=== PATIENT | male | born 1940 | race Caucasian/White ===

== ENCOUNTER → 2017-06-04 | Outpatient (CLI) | payer BC, OTHER | LOC: M.RAD 11:39 | DX: Z00.00 Encounter for general adult medical examination without abnormal findings (principal); K44.9 Diaphragmatic hernia without obstruction or gangrene; R91.1 Solitary pulmonary nodule ==

== ENCOUNTER → 2017-06-22 | Outpatient (CLI) | payer BC, OTHER ==
--- NOTE | 2017-06-27 22:41 | ONC ---
[place] [address] RADIATION ONCOLOGY NOTE Name: ERMIASFUAD Yenifer Room: [facility]#: [id number] Admission: 06/22/17 Attend Phys: Juan Olivares MD Discharge: Date of : 36 Report #: [id number] THIS REPORT FOR: //name// CC: Anson Melton MD DATE OF SERVICE: 06/22/2017 RADIATION ONCOLOGY FOLLOWUP NOTE REFERRING PHYSICIANS: Anson Dixon DO and Abhinav Melton MD [facility] phone is [phone]. 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 The radiation treatments were completed on 11/17/2013. INTERVAL NOTE: The patient indicated that he received chemotherapy years ago and that he has had neuropathy in his lower extremities since that time. He has good range of motion in his lower extremities. He has a good appetite. MEDICATIONS: Include Zegerid, aspirin, Lipitor, and vitamin supplements. SOCIAL HISTORY: The patient is retired. He worked for [employer]. He is . Cigarettes: he smoked about 1 pack per day for about 12 years. He quit smoking in 1969. REVIEW OF SYSTEMS: NEUROLOGIC: The patient's gait is intact. The patient ambulates without assistance. GASTROINTESTINAL: He has a good appetite. PHYSICAL EXAMINATION: VITAL SIGNS: The patient weighed 162 pounds on 06/22/2017, 160.8 pounds on 12/08/2016, On 06/22/2017, blood pressure was 127/85, pulse 92, respirations 20, oxygen saturation was 95%. LYMPH NODES: He had no palpable cervical, supraclavicular or inguinal lymphadenopathy. HEART: Had a regular rate and rhythm without murmur. LUNGS: were clear to auscultation. ABDOMEN: Not tender. Spleen was not palpable. Liver was at the costal margin. EXTREMITIES: The patient had a well-healed graft site in the left thigh area, which is soft and stable. That has been stable and measured about 10.6 cm x 7 cm. RADIOLOGIC DATA: The patient had a chest CT scan on 04/07/2017 [place] [address] RADIATION ONCOLOGY NOTE Name: FUAD MONSON Room: [facility]#: [id number] Admission: 06/22/17 Attend Phys: Juan Olivares MD Discharge: Date of : 36 Report #: [id number] revealed a stable nodule in the upper lobe of the right lung that has been stable since 2012 and consistent with a granuloma. There were no suspicious pulmonary nodules and there were mild coronary artery calcifications. The patient had a chest x-ray on 06/04/2017 which had a stable chest x-ray appearance. ASSESSMENT AND PLAN: 1. History of sarcoma- There is no evidence of sarcoma at this time. The patient is scheduled for a CT scan of the chest as well as an appointment with his surgeon, Dr. Abhinav Melton, on 10/06/2017. The patient was given a requisition for a chest x-ray in December 2017 and he was asked to schedule a follow up appointment with me afterwards. 2. Lower extremity neuropathy - the patient was referred to the oncology rehabilitation physician, Dr. Lozano to assess and manage this issue. 3. Calcified coronary artery disease- The patient was referred to his primary care physician, Dr. Dixon, to manage this issue. 4. Hyperlipidemia- The patient takes Lipitor and that is managed by his referring physicians. 5. Reflux- The patient takes Zegerid for reflux and that is managed by his referring physicians. Thank you for allowing me to participate in the care of this patient. <ELECTRONICALLY SIGNED> By: Juan Oliavres MD 06/27/17 2241 1700 1949Juan Olivares MD /nt
== END ==
LOC: M.RTH 06-08 15:00
DX: I25.10 Atherosclerotic heart disease of native coronary artery without angina pectoris (principal); E78.5 Hyperlipidemia, unspecified; G57.90 Unspecified mononeuropathy of unspecified lower limb; K21.9 Gastro-esophageal reflux disease without esophagitis; Z85.831 Personal history of malignant neoplasm of soft tissue

== ENCOUNTER → 2017-12-23 | Outpatient (CLI) | payer BC | LOC: M.RAD 14:21 | DX: J84.10 Pulmonary fibrosis, unspecified (principal); K44.9 Diaphragmatic hernia without obstruction or gangrene; Z85.831 Personal history of malignant neoplasm of soft tissue ==

== ENCOUNTER → 2017-12-25 | Outpatient (CLI) | payer BC ==
--- NOTE | 2018-01-02 17:56 | ONC ---
[address] [address] RADIATION ONCOLOGY NOTE Name: ERMIASFUAD Street Room: [facility]#: [id number] Admission: 12/25/17 Attend Phys: Juan Olivares MD Discharge: Date of : 36 Report #: [id number] THIS REPORT FOR: //name// CC: Anson Melton MD DATE OF SERVICE: 12/25/2017 Radiation Oncology Followup Note REFERRING PHYSICIANS: Include Abhinav Melton MD and Anson Dixon DO; Dr. Lozano. [facility] phone is [phone]. 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 Radiation treatments were completed on 11/17/2013. INTERVAL NOTE: The patient said that he saw the oncology rehabilitation physician, Dr. Lozano, for his neuropathy and that Dr. Lozano prescribed gabapentin for him and that his neuropathy pain has improved. He continues to follow up with his surgeon, Dr. Melton. He feels like he ambulates well. He has a good appetite. He is able to ambulate unassisted. MEDICATIONS: Include zinc supplement, Zegerid, multivitamin, aspirin, Lipitor, and gabapentin. SOCIAL HISTORY: The patient is retired. He worked for [employer]. He is . Cigarettes: He smoked about 1 pack per day for about 12 years. He quit smoking in 1969. REVIEW OF SYSTEMS: NEUROLOGIC: The patient's gait is intact. The patient ambulates without assistance. GASTROINTESTINAL: He has a good appetite. PHYSICAL EXAMINATION: VITAL SIGNS: The patient weighed 159 pounds on 12/25/2017. The patient was 162 pounds on 06/22/2017. On 12/25/2017, blood pressure was 137/79, pulse 80, respirations 18, oxygen saturation was 98% on room air. LYMPH NODES: He had no palpable cervical, supraclavicular or inguinal lymphadenopathy. HEART: Had a regular rate and rhythm without murmur. LUNGS: [place] [address] RADIATION ONCOLOGY NOTE Name: FUAD MONSON Room: [facility]#: [id number] Admission: 12/25/17 Attend Phys: Juan Olivares MD Discharge: Date of : 36 Report #: [id number] ABDOMEN: Not tender, spleen was not palpable. Liver was at the costal margin. EXTREMITIES: The patient has a well-healed graft site in the left thigh area, which was soft and stable. RADIOLOGIC DATA: The patient had a chest x-ray on 12/23/2017 at [facility], which revealed a small stable calcified granuloma in the mid right lung. Otherwise, the chest x-ray revealed no acute abnormalities. The patient had a chest CT on 10/06/2017 and that revealed a 0.7 cm right upper lobe nodule that remained unchanged since 2012. The patient has a hiatal hernia. There was no evidence of thoracic metastatic disease. ASSESSMENT AND PLAN: 1. History of sarcoma- There is no evidence of sarcoma at this time. The patient has an appointment with Dr. Melton's nurse practitioner on 04/07/2018. He is also scheduled for a chest CT scan at that time. The patient was given a requisition for a chest x-ray in 1 year and the patient was asked to schedule a followup appointment to see me afterwards. 2. Lower extremity neuropathy- The patient is taking gabapentin and that has been managed by his oncology rehabilitation physician, Dr. Lozano. 3. Calcified coronary artery disease- The patient had been previously referred to his primary care physician, Dr. Dixon, to manage this issue. 4. Hyperlipidemia- The patient takes Lipitor and that is managed by his referring physicians. 5. Reflux. The patient takes Zegerid for reflux and that is managed by his referring physicians. Thank you for allowing me to participate in the care of this patient. <ELECTRONICALLY SIGNED> By: Juan Olivares MD 01/02/18 1756 1110 0049Juan Olivares MD /nt
== END ==
LOC: M.RTH 04:52
DX: E78.5 Hyperlipidemia, unspecified (principal); G57.90 Unspecified mononeuropathy of unspecified lower limb; I25.10 Atherosclerotic heart disease of native coronary artery without angina pectoris; K21.9 Gastro-esophageal reflux disease without esophagitis; Z85.831 Personal history of malignant neoplasm of soft tissue

== ENCOUNTER → 2019-01-04 | Outpatient (CLI) | payer BC | LOC: M.RAD 16:20 | DX: J98.11 Atelectasis (principal); J98.4 Other disorders of lung; K44.9 Diaphragmatic hernia without obstruction or gangrene; M41.84 Other forms of scoliosis, thoracic region ==

== ENCOUNTER → 2019-01-07 | Outpatient (CLI) | payer BC ==
--- NOTE | 2019-01-23 17:57 | ONC ---
[address] [address] RADIATION ONCOLOGY NOTE Name: FUAD MONSON Room: [facility]#: [id number] Admission: 01/07/19 Attend Phys: Juan Olivares MD Discharge: Date of : 36 Report #: [id number] THIS REPORT FOR: //name// CC: Dr. Anson Olivares MD DATE OF SERVICE: 01/07/2019 REFERRING PHYSICIANS: Abhinav Melton MD; Anson Dixon DO. [facility] phone is [phone]. 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 The patient received postoperative radiation therapy. Radiation treatments were completed on 11/17/2013. INTERVAL NOTE: The patient felt like he was ambulating well and he had seen the oncology rehabilitation physician, Dr. Lozano and she prescribed gabapentin for neuropathy pain and he felt that was working reasonably well. He did have some new complaints about intermittent hematuria, which he attributed to taking aspirin. He states it appeared to resolve when he was no longer taking aspirin. He has not seen urologist yet about that issue. MEDICATIONS: Include zinc supplement, Zegerid, multivitamin, aspirin, Lipitor, and gabapentin. SOCIAL HISTORY: The patient is retired. He worked for [employer]. He is . Cigarettes: he smoked about 1 pack per day for about 12 years. He quit smoking in 1969. REVIEW OF SYSTEMS: NEUROLOGIC: The patient's gait is intact. The patient ambulates without assistance. GASTROINTESTINAL: He has a good appetite. PHYSICAL EXAMINATION: VITAL SIGNS: The patient weighed 160 pounds on 01/07/2019. He was 159 pounds on 12/25/2017. On 01/07/2019, blood pressure was 131/79, pulse 86, respirations 20, oxygen saturation was 97% on room air. LYMPH NODES: He had no palpable cervical or supraclavicular or inguinal lymphadenopathy. HEART: Had a regular rate and rhythm without murmur. LUNGS: were clear to auscultation. ABDOMEN: Not tender. Spleen [place] [address] RADIATION ONCOLOGY NOTE Name: FUAD MONSON Room: [facility]#: [id number] Admission: 01/07/19 Attend Phys: Juan Olivares MD Discharge: Date of : 36 Report #: [id number] at the costal margin. EXTREMITIES: The patient has a well-healed graft site at the left thigh area and he is ambulating without assistance. RADIOLOGIC DATA: The patient had a chest x-ray on 01/04/2019, which revealed no acute chest process. ASSESSMENT AND PLAN: 1. History of sarcoma- There is no evidence of sarcoma at this time. A chest x-ray was ordered in about 1 year and the patient was asked to schedule a followup appointment to see me afterwards. 2. Intermittent hematuria - the patient was referred to the urologist, Dr. Casey, or his colleagues to manage this issue. 3. Hyperlipidemia- The patient takes Lipitor and that is managed by his referring physicians. 4. Lower extremity neuropathy- The patient takes gabapentin for his neuropathy symptoms. Thank you for allowing me to participate in the care of this patient. <ELECTRONICALLY SIGNED> By: Juan Olivares MD 01/23/19 1757 1417 [id number] Olivares MD /nt
== END ==
LOC: M.RTH 12-29 11:00
DX: Z08 Encounter for follow-up examination after completed treatment for malignant neoplasm (principal); N02.9 Recurrent and persistent hematuria with unspecified morphologic changes; E78.5 Hyperlipidemia, unspecified; G62.9 Polyneuropathy, unspecified; Z85.89 Personal history of malignant neoplasm of other organs and systems; Z92.3 Personal history of irradiation; Z79.899 Other long term (current) drug therapy; Z87.891 Personal history of nicotine dependence

== ENCOUNTER → 2019-12-30 | Outpatient (CLI) | payer BC | LOC: M.RAD 15:51 | PROVIDERS: ATTEND Radiology Radiation Oncology | DX: Z08 Encounter for follow-up examination after completed treatment for malignant neoplasm (principal); K44.9 Diaphragmatic hernia without obstruction or gangrene; Z85.89 Personal history of malignant neoplasm of other organs and systems ==

== ENCOUNTER → 2020-01-06 | Outpatient (CLI) | payer BC ==
--- NOTE | 2020-01-15 23:20 | ONC ---
[address] [address] RADIATION ONCOLOGY NOTE Name: FUAD MONSON Room: [facility].#: [id number] Admission: 01/06/20 Attend Phys: Juan Olivares MD Discharge: Date of : 36 Report #: [id number] THIS REPORT FOR: //name// CC: Dr. Anson Owens DATE OF SERVICE: 01/06/2020 RADIATION ONCOLOGY FOLLOWUP NOTE REFERRING PHYSICIANS: Include Abhinav Melton MD and Carlos Guevara MD and Dr. Owens from Urology. [facility] phone is [phone]. PRIMARY SITE AND HISTOPATHOLOGY: The patient underwent resection of a recurrent low-grade mixed fibrosarcoma that involved the left lower extremity. The patient received postoperative radiation therapy. Radiation treatments were completed on 11/17/2013. INTERVAL NOTE: Since his last followup visit with me last year, he went to see the urologist, Dr. Owens. Dr. Owens diagnosed him with, what sounds like a, superficial bladder cancer. The patient indicated that he underwent a transurethral resection of the bladder tumor and follows up with Dr. Owens about every 6 months for cystoscopy. The patient continues to also follow up with his surgeon, Dr. Melton about once a year. The patient feels like he ambulates well and he also had a cataract repair and he has ectropion of the right lower eyelid and he said he will be seeing an channel opener/plastic surgeon to correct that issue. MEDICATIONS: Include famotidine, Lipitor, aspirin, and then vitamin supplements. SOCIAL HISTORY: The patient is retired. He worked for [employer]. He is . Cigarettes: he smoked about 1 pack per day for about 12 years. He quit smoking in 1969. REVIEW OF SYSTEMS: NEUROLOGIC: The patient's gait is intact. The patient ambulates without assistance. GASTROINTESTINAL: He has a good appetite. PHYSICAL EXAMINATION: [place] [address] RADIATION ONCOLOGY NOTE Name: FUAD MONSON VAMSHI Room: [facility]#: [id number] Admission: 01/06/20 Attend Phys: Juan Olivares MD Discharge: Date of : 36 Report #: [id number] VITAL SIGNS: The patient weighed 161.8 pounds on 01/06/2020, he was 160 pounds on 01/07/2019. On 01/06/2020, blood pressure was 137/76, pulse 87, respirations 18, oxygen saturation was 97% on room air. LYMPH NODES: The patient had no palpable cervical or supraclavicular or inguinal lymphadenopathy. HEART: Had a regular rate and rhythm without murmur. LUNGS: were clear to auscultation. ABDOMEN: Not tender, spleen was not palpable. Liver was at the costal margin. EXTREMITIES: The patient has a well-healed graft site at the left thigh area and he is ambulating without assistance. RADIOLOGIC DATA: On the chest x-ray from 12/30/2019, patient had no acute process and the patient had a hiatal hernia and had a stable calcified pulmonary nodule in the right mid lung. The patient also had a chest CT with contrast on 06/02/2019 which showed a stable small right upper lobe nodule and a tiny right upper lobe subpleural nodule that had been stable since at least 2012 and likely benign. There was no thoracic lymphadenopathy and he had a hiatal hernia and some mild coronary artery calcification. ASSESSMENT AND PLAN: 1. History of sarcoma of the left lower extremity- There is no evidence of sarcoma at this time. His surgeon has him scheduled for a chest CT on 05/31/2020 and he is also scheduled to see Dr. Melton on 05/31/2020. I ordered lab work in about 1 year and I offered the patient a follow up with me afterwards. 2. Superficial bladder cancer- The patient has had a transurethral resection of the bladder by Dr. Owens and he says he sees him every 6 months for cystoscopy at this time. 3. Hyperlipidemia- The patient takes Lipitor that is managed by his referring physicians. 4. Gastroesophageal reflux symptoms- The patient takes famotidine for that issue. Thank you for allowing me to participate in the care of this patient. <ELECTRONICALLY SIGNED> By: Juan Olivares MD 01/15/20 2320 1225 [id number] Olivares MD /nt
== END ==
LOC: M.RTH 00:30
PROVIDERS: ATTEND Radiology Radiation Oncology
DX: Z08 Encounter for follow-up examination after completed treatment for malignant neoplasm (principal); Z85.831 Personal history of malignant neoplasm of soft tissue; Z92.3 Personal history of irradiation; K21.9 Gastro-esophageal reflux disease without esophagitis; E78.5 Hyperlipidemia, unspecified

== ENCOUNTER → 2020-12-31 | Outpatient (CLI) | payer BC ==
[2020-12-31 15:56] LABS: ABSOLUTE EOSINOPHILS 0.1 thou/uL (0.0-0.7); ABSOLUTE MONOCYTES 0.5 thou/uL (0.0-1.2); ABSOLUTE NEUTROPHILS 3.8 thou/uL (1.6-8.1); BASOPHILS 0.6 %; EOSINOPHILS 1.8 %; HEMATOCRIT 40.7 % (42.0-52.0); HEMOGLOBIN 13.6 gm/dL (14.0-18.0); LYMPHOCYTES 18.1 %; MCH 28.1 pg (26.0-34.0); MCHC 33.3 g/dL (28.0-37.0); MCV 84.4 fL (80.0-100.0); MONOCYTES 8.9 %; MPV 8.2 fl. (7.2-11.1); NUCLEATED RBCS 0 /100WBC; PLATELET COUNT* 178 thou/uL (150-400); POLYS 70.6 %; RBC 4.83 mil/uL (4.50-6.00); RDW-CV 14.8 % (10.5-14.5); WBC 5.4 thou/uL (4.0-11.0)
[2020-12-31 16:19] LABS: CALCIUM 9.1 mg/dL (8.5-10.1); POTASSIUM 3.6 mmol/L (3.5-5.1); TOTAL BILIRUBIN 0.6 mg/dL (<0.1-1.0); TOTAL PROTEIN 7.5 g/dL (6.4-8.2)
== END ==
LOC: M.LAB 15:33
PROVIDERS: ATTEND Radiology Radiation Oncology
DX: C67.9 Malignant neoplasm of bladder, unspecified (principal); K44.9 Diaphragmatic hernia without obstruction or gangrene; Z85.831 Personal history of malignant neoplasm of soft tissue